=== PATIENT | male | born 1985 | race African-American/Black ===

== ENCOUNTER 2017-02-03 01:28 | Emergency (ER) | payer OTHER ==
[~2017-02-03] VITALS: Ht 180.3 cm; Wt 90.1 kg
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
[2017-02-03 02:11] VITALS: Ht 180.3 cm; Wt 90.1 kg
[2017-02-03 02:15] VITALS: BP 163/89; PULSE 72; RESP 20; TEMP 98.6
[2017-02-03] MEDS ORDERED: ONDANSETRON (ODT) 4 MG TAB ODT STA (02:16)
[2017-02-03] MEDS ORDERED: IBUP-1542 PO (02:19)
[2017-02-03] MEDS ORDERED: HYDROCODONE/APAP (10/325) TAB PO ONE (02:30)
== END 2017-02-03 10:45 | disposition home or self-care (01) ==
LOC: E/R 01:28
DX: G89.18 Other acute postprocedural pain (principal); R10.9 Unspecified abdominal pain; F17.210 Nicotine dependence, cigarettes, uncomplicated
CPT/HCPCS: Z7502; Z7610; 99283